=== PATIENT | female | born 1975 | race African-American/Black ===

== ENCOUNTER 2019-03-26 18:28 | Emergency (ER) | payer BC, OTHER ==
[2019-03-26 18:33] VITALS: BP 143/84; PULSE 115; TEMP 98.3; BMI 35.0
--- NOTE | 2019-03-26 18:42 | PDOC ---
*Physical Exam - Vital Signs Last Vital Signs Temp Pulse Resp BP Pulse Ox 98.3 F 115 H 17 143/84 98 03/26/19 18:30 03/26/19 18:30 03/26/19 18:30 03/26/19 18:30 03/26/19 18:30 - Physical Exam Comments: 03/26/19 18:42 The patient was examined by ORLANDO Marie [] under my direct supervision. I personally evaluated the patient. I concur with the above findings and the plan of care.
--- NOTE | 2019-03-26 19:01 | PDOC ---
History of Present Illness - General Chief Complaint: Vaginal Bleeding Stated Complaint: 7 WEEKS /VAG/BLEEDING Time Seen by Provider: 03/26/19 18:31 - History of Present Illness Initial Comments: 03/26/19 18:55 CHIEF COMPLAINT: vaginal bleeding HISTORY OF PRESENT ILLNESS: 43 yo F with hx of antiphospholipid syndrome and incompetent cervix presents to ED with vaginal bleeding since this evening around 5 pm. Patient describes the bleeding as light bleeding and states she has not gone through a full pad since the onset of bleeding. Patient denies any lightheadedness, dizziness, shortness of breath, or palpitations. Patient notes that she is on prednisone for antiphospholipid syndrome has a high HR at baseline. LMP 02/07. Patient notes that this is an IVF and the implantation was done February 21. Patient denies any cramping or abdominal pain. OB: Dr. Melissa. project portfolio analyst: Dr. Richie Quiros No recent travel or sick contacts. PAST MEDICAL HISTORY: antiphospholipid syndrome, incompetent cervix FAMILY HISTORY: Denies SOCIAL HISTORY: Denies tobacco, alcohol, illicit drug use. SURGICAL HISTORY: abdominal cerclage, R ankle ligament reconstruction ALLERGIES: meperidine REVIEW OF SYSTEMS General/Constitutional: Denies fever or chills. Denies weakness, weight change. HEENT: Denies change in vision. Denies ear pain or discharge. Denies sore throat. Cardiovascular: Denies chest pain or shortness of breath. Respiratory: Denies cough, wheezing, or hemoptysis. Gastrointestinal: Denies nausea, vomiting, diarrhea or constipation. Denies rectal bleeding. Genitourinary: Vaginal bleeding x 2 hours. Denies dysuria, frequency, or change in urination. Musculoskeletal: Denies joint or muscle swelling or pain. Denies neck or back pain. Skin and breasts: Denies rash or easy bruising. Neurologic: Denies headache, vertigo, loss of consciousness, or loss of sensation. Psychiatric: Denies depression or anxiety. PHYSICAL EXAM General Appearance: Well-appearing, appropriately dressed. No apparent distress. HEENT: EOMI, PERRLA, normal ENT inspection, normal voice, TMs normal, pharynx normal. No conjunctival pallor. No photophobia, scleral icterus. Neck: Supple. Trachea midline. No tenderness, rigidity, carotid bruit, stridor , lymphadenopathy, or thyromegaly. Respiratory/Chest: Lungs CTAB. No shortness of breath, chest tenderness, respiratory distress, accessory muscle use. No crackles, rales, rhonchi, stridor , wheezing, dullness Cardiovascular: RRR. S1, S2. No JVD, murmur, bradycardia, tachycardia. Vascular Pulses: Dorsalis-Pedis (R): 2+, Dorsalis-Pedis (L): 2+ Gastrointestinal/Abdominal: Normal bowel sounds. Abdomen soft, non-distended. No tenderness or rebound tenderness. No organomegaly, pulsatile mass, guarding , hernia, hepatomegaly, splenomegaly. Pelvic: External genitalia normal without lesions. Bloody discharge to cervical os and vaginal vault. Uterus is nontender and normal in size. Adnexa are nontender and without masses. Lymphatic: No adenopathy, tenderness. Musculoskeletal/Extremities: Normal inspection. FROM of all extremities, normal capillary refill. Pelvis Stable. No CVA tenderness. No tenderness to extremities, pedal edema, swelling, erythema or deformity. Integumentary: Appropriate color, dry, warm. No cyanosis, erythema, jaundice or rash Neurologic: aerial installer II-XII intact. Fully oriented, alert. Appropriate mood/affect. Motor strength 5/5. No appreciable EOM palsy, facial droop or sensory deficit. 03/26/19 19:57 Past History - Past Medical History Allergies/Adverse Reactions: Allergies Allergy/AdvReac Type Severity Reaction Status Date / Time meperidine HCl [From Demerol] Allergy Difficulty Verified 03/26/19 18:33 Breathing Home Medications: Ambulatory Orders Aspirin [ASA -] 81 mg PO DAILY 04/22/16 Estrogens,Esterified [Menest] 2 mg PO BID 04/22/16 Hydrocodone/Ibuprofen [Hydrocodone-Ibuprofen 7.5-200] 1 each PO Q6H #15 tablet MDD 4 04/22/16 Ibuprofen [Motrin -] 800 mg PO Q6H #30 tablet 04/22/16 Non-Formulary 0 mg PO ASDIR 04/22/16 Non-Formulary 0 mg PO ASDIR 04/22/16 Anemia: No Asthma: Yes Cancer: No Cardiac Disorders: No CVA: No COPD: No CHF: No Dementia: No Diabetes: No GI Disorders: No Disorders: No HTN: No Hypercholesterolemia: No Liver Disease: No Seizures: No Thyroid Disease: No Other medical history: antiphospholipids syndrome on lovenox - Surgical History Abdominal Surgery: No Appendectomy: No Cardiac Surgery: No Cholecystectomy: Yes Lung Surgery: No Neurologic Surgery: No Orthopedic Surgery: Yes (R ANKLE LIGAMENT RECONSTUCTION TIMES TWO) - Reproductive History Cervical CA: No Dysfunctional Uterine Bleeding: No Ectopic : No Endometrial CA: No Polycystic Ovaries: No Therapeutic (s) & number: No - Immunization History Immunization Up to Date: Yes - Psycho Social/Smoking Cessation Hx Smoking Status: No Smoking History: Never smoked Have you smoked in the past 12 months: No Number of Cigarettes Smoked Daily: 0 Cigars Per Day: 0 Information on smoking cessation initiated: No Hx Alcohol Use: No Drug/Substance Use Hx: No Substance Use Type: None Hx Substance Use Treatment: No *Physical Exam - Vital Signs Last Vital Signs Temp Pulse Resp BP Pulse Ox 98.3 F 115 H 17 143/84 98 03/26/19 18:30 03/26/19 18:30 03/26/19 18:30 03/26/19 18:30 03/26/19 18:30 ED Treatment Course - LABORATORY CBC & Chemistry Diagram: 03/26/19 18:47 03/26/19 18:47 Medical Decision Making - Medical Decision Making 03/26/19 21:47 43 yo F with hx of antiphospholipid syndrome and incompetent cervix presents to ED with vaginal bleeding since this evening around 5 pm. -labs -T&S -TVUS beta 61610 blood type O positive, no indication for rhogham. US shows IUP with EGA of 6 weeks without embryonic pole - early vs blighted ovum. Advised patient to f/u in 48 hours for repeat beta testing. Advised patient of signs and symptoms for return to ED. Patient verbalized understanding and agrees to plan. Discharge - Discharge Information Problems reviewed: Yes Clinical Impression/Diagnosis: Threatened miscarriage in early Condition: Stable Disposition: HOME - Admission No - Follow up/Referral Referrals: Cherelle Kaminski MD [Primary Care Provider] - Lisa Melissa MD [Staff Physician] - - Patient Discharge Instructions Patient Printed Discharge Instructions: DI for Threatened - Post Discharge Activity Work/Back to School Note: Back to Work
[2019-03-26 19:03] LABS: BASO % 0.5 % (0-2.0); HEMATOCRIT 38.5 % (32.4-45.2); HEMOGLOBIN 12.7 GM/dL (10.7-15.3); LYMPH % 11.9 % (8-40); MCH 28.3 pg (25.7-33.7); MEAN CELL VOLUME 85.6 fl (80-96); MEAN PLT VOLUME 6.7 fl (7.5-11.1); MONO % 3.3 % (3.8-10.2); NEUT % 84.3 % (42.8-82.8); PLATELET COUNT 338 K/MM3 (134-434); RDW 20.9 % (11.6-15.6); WHITE BLOOD COUNT 17.3 K/mm3 (4.0-10.0)
[2019-03-26 19:49] LABS: ALBUMIN 3.3 g/dl (3.4-5.0); BILIRUBIN,TOTAL 0.3 mg/dL (0.2-1); BLOOD UREA NITROGEN 14.4 mg/dL (7-18); CALCIUM 8.8 mg/dL (8.5-10.1); POTASSIUM 4.4 mmol/L (3.5-5.1); TOT PROT 6.9 g/dl (6.4-8.2)
[2019-03-26 21:05] LABS: ANISOCYTOSIS 2+; MACROCYTOSIS 1+; PLATELET ESTIMATE ADEQUATE
== END 2019-03-26 22:24 | disposition home or self-care (01) ==
LOC: JER 18:28
DX: O26.891 Other specified pregnancy related conditions, first trimester (principal); Z3A.01 Less than 8 weeks gestation of pregnancy; O20.0 Threatened abortion
CPT/HCPCS: 36415; 76801-TC; 80053; 84702; 85025; 86850; 86900; 86901; 87086; 99283-25

== ENCOUNTER 2020-05-26 19:59 | Inpatient (IN) | payer BC, OTHER ==
[2020-05-26 20:14] VITALS: BMI 34.0
[2020-05-26] MEDS ORDERED: ACETAMINOPHEN 1000 MG/100 ML VIAL (NON FORMULARY) IVPB ONE (20:22)
[2020-05-26] MEDS ORDERED: SODIUM CHLORIDE 1,000 ML IV STA (20:22)
[2020-05-26] MEDS ORDERED: DEXAMETHASONE SOD PHOSPHATE 10 MG/1 ML VIAL IVPUSH ONE ×2 (20:25→20:34)
[2020-05-26] MEDS ORDERED: DEXAMETHASONE SOD PHOSPHATE 10 MG/1 ML VIAL ONE (21:12)
[2020-05-26] MEDS ORDERED: ACETAMINOPHEN INJECTION 100 ML IVPB ONE (21:12)
[2020-05-26 21:27] LABS: BASO % 0.3 % (0-2.0); EOS % 0.5 % (0-4.5); HEMATOCRIT 44.5 % (32.4-45.2); HEMOGLOBIN 14.9 GM/dL (10.7-15.3); LYMPH % 42.9 % (8-40); MCH 29.4 pg (25.7-33.7); MCHC 33.5 g/dl (32.0-36.0); MEAN CELL VOLUME 87.6 fl (80-96); MEAN PLT VOLUME 7.3 fl (7.5-11.1); MONO % 10.5 % (3.8-10.2); NEUT % 45.8 % (42.8-82.8); PLATELET COUNT 419 K/MM3 (134-434); RBC 5.08 M/mm3 (3.60-5.2); RDW 14.8 % (11.6-15.6); WHITE BLOOD COUNT 7.9 K/mm3 (4.0-10.0)
[2020-05-26 21:28] LABS: VENOUS BASE EXCESS 1.9 mmol/L (-2-2); VENOUS O2 SATURATION 68.4 % (70-80); VENOUS PCO2 30.4 mmHg (38-52); VENOUS PH 7.51 (7.310-7.410)
[2020-05-26 21:44] LABS: INR 1.26 (0.83-1.09); PROTHROMBIN TIME (PATIENT) 15.1 SEC (9.7-13.0)
[2020-05-26 21:47] LABS: ACTIVATED PTT 28.9 SECONDS (25.2-36.5)
[2020-05-26 21:54] LABS: CHLORIDE 103 mmol/L (98-107); POTASSIUM 3.4 mmol/L (3.5-5.1); SODIUM 139 mmol/L (136-145)
[2020-05-26 21:57] LABS: ALBUMIN 3.6 g/dl (3.4-5.0); ANION GAP 12 MMOL/L (8-16); BLOOD UREA NITROGEN 5.6 mg/dL (7-18); CALCIUM 8.8 mg/dL (8.5-10.1); CO2 24 mmol/L (21-32); GLUCOSE,RANDOM 141 mg/dL (74-106)
[2020-05-26 22:01] LABS: BILIRUBIN,DIRECT 0.2 mg/dL (0.0-0.2); SGOT/AST 24 U/L (15-37); SGPT/ALT 26 U/L (13-61)
[2020-05-26 22:02] LABS: BILIRUBIN,TOTAL 0.6 mg/dL (0.2-1); LDH 318 U/L (84-246)
[2020-05-26 22:03] LABS: TOT PROT 7.6 g/dl (6.4-8.2)
[2020-05-26 22:04] LABS: ALK PHOS 97 U/L (45-117)
[2020-05-26] MEDS ORDERED: LACTATED RINGERS SOLUTION 1000 ML INFUS.BAG IV ONE (23:07)
[2020-05-26] MEDS ORDERED: ENOXAPARIN NA (PORCINE) 80 MG/0.8 ML DISP.SYRIN SQ ONE ×2 (23:07→23:46)
[2020-05-26] MEDS ORDERED: ALBUTEROL SO4 2.5/IPRATROPIUM 0.5 INH SOL 3 ML VIAL.NEB. NEB ONE (23:47)
[2020-05-26] MEDS: ALBUTEROL SO4 2.5/IPRATROPIUM 0.5 INH SOL 3 ML VIAL.NEB. NEB SCH (23:56)
[2020-05-27] MEDS: ALBUTEROL SO4 2.5/IPRATROPIUM 0.5 INH SOL 3 ML VIAL.NEB. NEB SCH ×3 (00:11→00:48)
[2020-05-27] MEDS ORDERED: ASCORBIC ACID 500 MG TABLET (FP) ONE ×2 (00:27→10:56)
[2020-05-27] MEDS: ASCORBIC ACID 500 MG TABLET (FP) PO SCH ×3 (00:33→21:50)
[2020-05-27] MEDS ORDERED: AZITHROMYCIN IVPB 500 MG/250 ML BAG IVPB ONE ×2 (01:17→02:27)
[2020-05-27] MEDS ORDERED: CEFTRIAXONE 1 GM in DEXTROSE 5%-WATER - 50 ML IVPB ONE (01:34)
[2020-05-27] MEDS ORDERED: CEFTRIAXONE 1 GM/50 ML BAG ONE (02:27)
[2020-05-27] MEDS: SODIUM CHLORIDE 1,000 ML IV SCH (03:14)
[2020-05-27] MEDS ORDERED: ENOXAPARIN NA (PORCINE) 60 MG/0.6 ML DISP.SYRIN SQ SCH (10:00)
[2020-05-27] MEDS ORDERED: DEXAMETHASONE SOD PHOSPHATE 10 MG/1 ML VIAL ONE (10:56)
[2020-05-27] MEDS ORDERED: ZINC SULFATE 220 MG CAPSULE (FP) ONE (10:56)
[2020-05-27] MEDS ORDERED: ENOXAPARIN NA (PORCINE) 100 MG/1 ML DISP.SYRIN SQ ONE (10:57)
[2020-05-27] MEDS ORDERED: CHOLECALCIFEROL (VIT D3) 1,000 UNIT (25 MCG) TABLET ONE (10:57)
[2020-05-27] MEDS: CHOLECALCIFEROL (VIT D3) 1,000 UNIT (25 MCG) TABLET PO SCH (11:00)
[2020-05-27] MEDS: DEXAMETHASONE SOD PHOSPHATE 10 MG/1 ML VIAL IVPUSH SCH (11:00)
[2020-05-27] MEDS: ZINC SULFATE 220 MG CAPSULE (FP) PO SCH (11:00)
[2020-05-27 11:11] LABS: URINE APPEARANCE CLEAR; URINE BILIRUBIN NEGATIVE (NEGATIVE); URINE COLOR YELLOW; URINE GLUCOSE (UA) 3+ (NEGATIVE); URINE KETONE 2+ (NEGATIVE); URINE LEUK ESTERASE NEGATIVE (NEGATIVE); URINE NITRITE NEGATIVE (NEGATIVE); URINE PROTEIN NEGATIVE (NEGATIVE); URINE UROBILINOGEN 0.2 mg/dL (0.2-1.0)
[2020-05-27] MEDS: D5-1/2NS+20 MEQ KCL - 20 MEQ/1,000 ML INFUS.BAG IV SCH (14:44)
[2020-05-27] MEDS: FAMOTIDINE 20 MG TABLET PO SCH (21:50)
[2020-05-28] MEDS: D5-1/2NS+20 MEQ KCL - 20 MEQ/1,000 ML INFUS.BAG IV SCH ×3 (02:00→22:37)
[2020-05-28 09:00] LABS: BASO % 0.2 % (0-2.0); HEMATOCRIT 36.5 % (32.4-45.2); HEMOGLOBIN 12.4 GM/dL (10.7-15.3); MCH 29.4 pg (25.7-33.7); MCHC 33.9 g/dl (32.0-36.0); MEAN CELL VOLUME 86.8 fl (80-96); MEAN PLT VOLUME 7.3 fl (7.5-11.1); MONO % 8.5 % (3.8-10.2); NEUT % 66.3 % (42.8-82.8); PLATELET COUNT 418 K/MM3 (134-434); RBC 4.21 M/mm3 (3.60-5.2); WHITE BLOOD COUNT 8.4 K/mm3 (4.0-10.0)
[2020-05-28 09:17] LABS: POTASSIUM 3.7 mmol/L (3.5-5.1)
[2020-05-28 09:36] LABS: BLOOD UREA NITROGEN 5.4 mg/dL (7-18); CALCIUM 8.6 mg/dL (8.5-10.1)
[2020-05-28 09:38] LABS: MAGNESIUM 2.3 mg/dL (1.8-2.4)
[2020-05-28 09:41] LABS: CREATININE 0.9 mg/dL (0.55-1.3)
[2020-05-28] MEDS: ZINC SULFATE 220 MG CAPSULE (FP) PO SCH (10:32)
[2020-05-28] MEDS: ASCORBIC ACID 500 MG TABLET (FP) PO SCH ×2 (10:32→21:28)
[2020-05-28] MEDS: CHOLECALCIFEROL (VIT D3) 1,000 UNIT (25 MCG) TABLET PO SCH (10:32)
[2020-05-28] MEDS: FAMOTIDINE 20 MG TABLET PO SCH ×2 (10:32→21:28)
[2020-05-28] MEDS: ENOXAPARIN NA (PORCINE) 40 MG/0.4 ML DISP.SYRIN SQ SCH (10:33)
[2020-05-28] MEDS: SODIUM CHLORIDE 1,000 ML IV SCH (10:33)
[2020-05-28] MEDS: DEXAMETHASONE SOD PHOSPHATE 10 MG/1 ML VIAL IVPUSH SCH (10:33)
[2020-05-28] MEDS ORDERED: PT OWN MED DRAWER 7, Y5N ONE (12:38)
[2020-05-28] MEDS: BUDESONIDE/FORMETEROL FUMARATE 160/4.5 mcg INHALER IH SCH ×2 (12:42→21:28)
[2020-05-28] MEDS ORDERED: ALPRAZolam 0.25 MG TABLET PO PRN (13:30)
[2020-05-29] MEDS: SODIUM CHLORIDE 1,000 ML IV SCH (03:39)
[2020-05-29] MEDS ORDERED: PT OWN MED DRAWER 7, Y5N ONE ×2 (09:15→20:19)
[2020-05-29] MEDS: DEXAMETHASONE SOD PHOSPHATE 10 MG/1 ML VIAL IVPUSH SCH (09:29)
[2020-05-29] MEDS: ENOXAPARIN NA (PORCINE) 40 MG/0.4 ML DISP.SYRIN SQ SCH (09:29)
[2020-05-29] MEDS: FAMOTIDINE 20 MG TABLET PO SCH ×2 (09:30→21:16)
[2020-05-29] MEDS: ZINC SULFATE 220 MG CAPSULE (FP) PO SCH (09:30)
[2020-05-29] MEDS: CHOLECALCIFEROL (VIT D3) 1,000 UNIT (25 MCG) TABLET PO SCH (09:30)
[2020-05-29] MEDS: ASCORBIC ACID 500 MG TABLET (FP) PO SCH ×2 (09:30→21:16)
[2020-05-29] MEDS: BUDESONIDE/FORMETEROL FUMARATE 160/4.5 mcg INHALER IH SCH ×2 (09:40→21:38)
[2020-05-29 09:47] LABS: BASO % 0.3 % (0-2.0); HEMOGLOBIN 11.8 GM/dL (10.7-15.3); LYMPH % 16.5 % (8-40); MCH 29.2 pg (25.7-33.7); MCHC 32.9 g/dl (32.0-36.0); MEAN CELL VOLUME 88.6 fl (80-96); MEAN PLT VOLUME 7.5 fl (7.5-11.1); MONO % 6.6 % (3.8-10.2); NEUT % 76.6 % (42.8-82.8); PLATELET COUNT 382 K/MM3 (134-434); RBC 4.06 M/mm3 (3.60-5.2); RDW 14.9 % (11.6-15.6)
[2020-05-29 09:55] LABS: POTASSIUM 5.2 mmol/L (3.5-5.1)
[2020-05-29 10:07] LABS: ALBUMIN 2.7 g/dl (3.4-5.0); CALCIUM 8.4 mg/dL (8.5-10.1)
[2020-05-29 10:08] LABS: BLOOD UREA NITROGEN 7.5 mg/dL (7-18)
[2020-05-29 10:11] LABS: CREATININE 0.8 mg/dL (0.55-1.3)
[2020-05-29 10:12] LABS: BILIRUBIN,TOTAL 0.6 mg/dL (0.2-1); TOT PROT 6.1 g/dl (6.4-8.2)
[2020-05-29] MEDS ORDERED: D5-1/2NS+20 MEQ KCL - 20 MEQ/1,000 ML INFUS.BAG IV SCH (10:49)
[2020-05-29] MEDS: SODIUM CHLORIDE 0.45% 1,000 ML IV SCH (11:35)
[2020-05-29] MEDS ORDERED: ALBUTEROL SO4 HFA INHALER IH PRN (12:22)
[2020-05-29] MEDS ORDERED: guaiFENesin 200 MG/10 ML 10 ML UNIT-DOSE CUPS PO PRN (12:33)
[2020-05-30] MEDS ORDERED: PT OWN MED DRAWER 7, Y5N ONE ×5 (04:00→20:55)
[2020-05-30] MEDS: CHOLECALCIFEROL (VIT D3) 1,000 UNIT (25 MCG) TABLET PO SCH (10:06)
[2020-05-30] MEDS: ZINC SULFATE 220 MG CAPSULE (FP) PO SCH (10:06)
[2020-05-30] MEDS: DEXAMETHASONE SOD PHOSPHATE 10 MG/1 ML VIAL IVPUSH SCH (10:06)
[2020-05-30] MEDS: FAMOTIDINE 20 MG TABLET PO SCH ×2 (10:06→21:50)
[2020-05-30] MEDS: ASCORBIC ACID 500 MG TABLET (FP) PO SCH ×2 (10:06→21:50)
[2020-05-30] MEDS: BUDESONIDE/FORMETEROL FUMARATE 160/4.5 mcg INHALER IH SCH ×2 (10:09→21:56)
[2020-05-30 10:27] LABS: HEMOGLOBIN 11.9 GM/dL (10.7-15.3); MCH 29.6 pg (25.7-33.7); MCHC 33.8 g/dl (32.0-36.0); MEAN CELL VOLUME 87.4 fl (80-96); MEAN PLT VOLUME 7.2 fl (7.5-11.1); PLATELET COUNT 405 K/MM3 (134-434); RBC 4.01 M/mm3 (3.60-5.2); RDW 15.2 % (11.6-15.6); WHITE BLOOD COUNT 9.9 K/mm3 (4.0-10.0)
[2020-05-30 10:49] LABS: POTASSIUM 3.6 mmol/L (3.5-5.1)
[2020-05-30] MEDS: ENOXAPARIN NA (PORCINE) 40 MG/0.4 ML DISP.SYRIN SQ SCH (10:55)
[2020-05-30 11:02] LABS: ALBUMIN 2.6 g/dl (3.4-5.0); BLOOD UREA NITROGEN 8.2 mg/dL (7-18); CALCIUM 8.5 mg/dL (8.5-10.1)
[2020-05-30 11:05] LABS: BILIRUBIN,TOTAL 0.3 mg/dL (0.2-1); CREATININE 0.8 mg/dL (0.55-1.3)
[2020-05-30 11:06] LABS: TOT PROT 5.6 g/dl (6.4-8.2)
[2020-05-30] MEDS: SODIUM CHLORIDE 0.45% 1,000 ML IV SCH (11:27)
[2020-05-31] MEDS: ENOXAPARIN NA (PORCINE) 40 MG/0.4 ML DISP.SYRIN SQ SCH (09:58)
[2020-05-31] MEDS: DEXAMETHASONE SOD PHOSPHATE 10 MG/1 ML VIAL IVPUSH SCH (09:58)
[2020-05-31] MEDS: CHOLECALCIFEROL (VIT D3) 1,000 UNIT (25 MCG) TABLET PO SCH (09:58)
[2020-05-31] MEDS: ZINC SULFATE 220 MG CAPSULE (FP) PO SCH (09:58)
[2020-05-31] MEDS: FAMOTIDINE 20 MG TABLET PO SCH (09:59)
[2020-05-31] MEDS: ASCORBIC ACID 500 MG TABLET (FP) PO SCH (09:59)
[2020-05-31] MEDS: BUDESONIDE/FORMETEROL FUMARATE 160/4.5 mcg INHALER IH SCH (09:59)
[2020-05-31 14:05] VITALS: BP 156/89; PULSE 60; TEMP 98.3
== END 2020-05-31 14:54 | disposition home or self-care (01) | DRG 177 ==
LOC: JER 19:59 → JERBED 05-27 00:20 → J8W 05-27 18:34
PROVIDERS: ADMIT Hospitalist; ATTEND Internal Medicine
DX: U07.1 COVID-19 (principal); J12.82 Pneumonia due to coronavirus disease 2019; J96.01 Acute respiratory failure with hypoxia; A41.9 Sepsis, unspecified organism; E87.2 Acidosis; J45.909 Unspecified asthma, uncomplicated; R00.0 Tachycardia, unspecified
CPT/HCPCS: 36415; 71045-TC-FY; 71260-TC; 80048; 80053; 81003; 82248; 82550; 82553; 82728; 82803; 82962; 83605; 83615; 83735; 84484; 84703; 85025; 85027; 85379; 85610; 85730; 86140; 86769; 87040; 87086; 87804; 93005; 93010; 94010; 94761; 99285-25; C9803; J0131; J1100; Q9967; U0003

== ENCOUNTER 2020-06-21 15:53 | Emergency (ER) | payer BC, OTHER ==
[2020-06-21 16:35] VITALS: TEMP 98.5; BMI 36.0
[2020-06-21] MEDS ORDERED: ONDANSETRON 4 MG/2 ML VIAL IVPUSH ONE (17:31)
[2020-06-21] MEDS ORDERED: SODIUM CHLORIDE 1,000 ML IV STA (17:31)
[2020-06-21] MEDS ORDERED: ONDANSETRON 4 MG/2 ML VIAL ONE (17:42)
[2020-06-21 19:22] LABS: BASO % 0.8 % (0-2.0); EOS % 6.9 % (0-4.5); HEMATOCRIT 38.9 % (32.4-45.2); HEMOGLOBIN 12.8 GM/dL (10.7-15.3); MCH 29.4 pg (25.7-33.7); MCHC 32.9 g/dl (32.0-36.0); MEAN CELL VOLUME 89.5 fl (80-96); MEAN PLT VOLUME 7.5 fl (7.5-11.1); MONO % 7.6 % (3.8-10.2); NEUT % 47.7 % (42.8-82.8); PLATELET COUNT 515 K/MM3 (134-434); RBC 4.35 M/mm3 (3.60-5.2); RDW 15.4 % (11.6-15.6)
[2020-06-21 19:49] LABS: CHLORIDE 101 mmol/L (98-107); POTASSIUM 3.9 mmol/L (3.5-5.1); SODIUM 136 mmol/L (136-145)
[2020-06-21 19:50] LABS: CALCIUM 9.1 mg/dL (8.5-10.1)
[2020-06-21 19:51] LABS: ALBUMIN 3.6 g/dl (3.4-5.0); ANION GAP 7 MMOL/L (8-16); BLOOD UREA NITROGEN 5.3 mg/dL (7-18); CO2 28 mmol/L (21-32); GLUCOSE,RANDOM 222 mg/dL (74-106)
[2020-06-21 19:54] LABS: CREATININE 0.8 mg/dL (0.55-1.3); SGOT/AST 21 U/L (15-37); SGPT/ALT 20 U/L (13-61)
[2020-06-21 19:56] LABS: BILIRUBIN,TOTAL 0.4 mg/dL (0.2-1); TOT PROT 7.5 g/dl (6.4-8.2)
[2020-06-21 19:57] LABS: ALK PHOS 98 U/L (45-117)
[2020-06-21 21:29] LABS: HCG,QUALITATIVE URINE Negative
[2020-06-21 22:00] LABS: EPI CELLS 18 /uL (0-25.1); HYALINE CASTS 2 /uL (0-3.1); PH,URINE 5.5 (5.0-8.0); URINE APPEARANCE CLEAR; URINE BACTERIA 288 /uL (0-1359); URINE BILIRUBIN NEGATIVE (NEGATIVE); URINE COLOR YELLOW; URINE GLUCOSE (UA) 3+ (NEGATIVE); URINE KETONE TRACE (NEGATIVE); URINE LEUK ESTERASE NEGATIVE (NEGATIVE); URINE NITRITE NEGATIVE (NEGATIVE); URINE PROTEIN TRACE (NEGATIVE); URINE RBC 8 /uL (0-23.9); URINE UROBILINOGEN 0.2 mg/dL (0.2-1.0); URINE WBC 50 /uL (0-25.8)
[2020-06-21 23:27] VITALS: BP 128/75; PULSE 95
== END 2020-06-21 23:27 | disposition home or self-care (01) ==
LOC: JER 15:53
PROC: 3E033NZ Introduction of Analgesics, Hypnotics, Sedatives into Peripheral Vein, Percutaneous Approach (ICD-10-PCS; principal; 2020-06-21)
PROC: 3E0337Z Introduction of Electrolytic and Water Balance Substance into Peripheral Vein, Percutaneous Approach (ICD-10-PCS; 2020-06-21)
DX: J12.82 Pneumonia due to coronavirus disease 2019 (principal); U07.1 COVID-19; R10.33 Periumbilical pain; R11.2 Nausea with vomiting, unspecified; K42.9 Umbilical hernia without obstruction or gangrene
CPT/HCPCS: 36415; 71046-TC-FY; 71275-TC; 74177-TC; 80053; 81003; 84484; 84703; 85025; 85379; 93005; 93010; 99285-25; Q9967

== ENCOUNTER 2020-06-29 04:27 | Day surgery (SDC) | payer BC, OTHER ==
[2020-06-25 12:44] VITALS: BMI 36.0
[2020-06-29] MEDS ORDERED: PROPOFOL 20 ML ONE ×2 (07:37)
[2020-06-29] MEDS ORDERED: SUCCINYLCHOLINE CHLORIDE 200 MG/10 ML SYRINGE ONE (07:38)
[2020-06-29] MEDS ORDERED: MIDAZOLAM HCL 2 MG/2 ML SINGLE DOSE VIAL ONE (07:38)
[2020-06-29] MEDS ORDERED: ROCURONIUM BROMIDE 50 MG/5 ML SYRINGE ONE (07:38)
[2020-06-29] MEDS ORDERED: LIDOCAINE HCL 1%, 10 MG/ML (20ML VIAL) ONE (08:26)
[2020-06-29] MEDS ORDERED: BUPIVACAINE HCL 0.5% 250 MG/50 ML VIAL IJ ONE ×2 (08:35)
[2020-06-29] MEDS ORDERED: LIDOCAINE HCL 1%, 10 MG/ML (20ML VIAL) INF ONE ×2 (08:35)
[2020-06-29] MEDS ORDERED: PHENYLEPHRINE HCL 10 MG/1 ML SINGLE DOSE VIAL ONE (09:26)
[2020-06-29] MEDS ORDERED: NEOSTIGMINE METHYLSULFATE 0.5 MG/ML - 10 ML MDV ONE (09:27)
[2020-06-29] MEDS ORDERED: ONDANSETRON 4 MG/2 ML VIAL IVPUSH PRN (10:28)
[2020-06-29] MEDS ORDERED: ACETAMINOPHEN 1000 MG/100 ML VIAL (NON FORMULARY) IVPB PRN (10:29)
[2020-06-29] MEDS ORDERED: LACTATED RINGERS SOLUTION 1,000 ML IV SCH (10:30)
[2020-06-29] MEDS ORDERED: oxyCODONE HCL 5 MG TABLET PO PRN (10:32)
[2020-06-29] MEDS ORDERED: ACETAMINOPHEN INJECTION 100 ML IVPB ONE (11:18)
[2020-06-29] MEDS ORDERED: oxyCODONE HCL 5 MG TABLET ONE (13:39)
[2020-06-29 15:02] VITALS: BP 102/67; PULSE 110; TEMP 97.9
== END 2020-06-29 16:00 | disposition home or self-care (01) ==
LOC: JASU-SURG 04:27
PROVIDERS: ATTEND Surgery
PROC: 0WUF0JZ Supplement Abdominal Wall with Synthetic Substitute, Open Approach (ICD-10-PCS; principal; 2020-06-29 08:00)
DX: K43.2 Incisional hernia without obstruction or gangrene (principal); E11.9 Type 2 diabetes mellitus without complications
CPT/HCPCS: 81025; 94760; J0131

== ENCOUNTER 2021-01-04 02:12 | Emergency (ER) | payer BC ==
[2021-01-04 03:14] VITALS: BP 116/81; PULSE 93; TEMP 98.4; BMI 31.6
[2021-01-04] MEDS ORDERED: LIDOCAINE 5% TOPICAL PATCH TP ONE ×2 (03:30→07:40)
[2021-01-04] MEDS ORDERED: KETOROLAC TROMETHAMINE 30 MG/1 ML VIAL IM ONE (04:15)
[2021-01-04] MEDS ORDERED: KETOROLAC TROMETHAMINE 30 MG/1 ML VIAL ONE (05:07)
[2021-01-04] MEDS ORDERED: LIDOCAINE 5% TOPICAL PATCH ONE (07:55)
[2021-01-04] MEDS ORDERED: LIDOCAINE PATCH REMOVAL MC ONE (22:00)
[2021-01-04] MEDS ORDERED: LIDOCAINE PATCH REMOVAL MC SCH (22:00)
== END 2021-01-04 09:18 | disposition home or self-care (01) ==
LOC: JER 02:12
PROC: 3E023GC Introduction of Other Therapeutic Substance into Muscle, Percutaneous Approach (ICD-10-PCS; principal; 2021-01-04)
DX: M54.2 Cervicalgia (principal); M54.5 Low back pain
CPT/HCPCS: 70450-TC; 72125-TC; 72128-TC; 72131-TC; 84703; 99284-25

== ENCOUNTER 2022-05-01 06:31 | Emergency (ER) | payer BC, OTHER ==
[2022-05-01 07:03] VITALS: BP 134/88; PULSE 115; RESP 18; TEMP 98.2; BMI 32.8
[2022-05-01] MEDS ORDERED: ACETAMINOPHEN 1000 MG/100 ML BAG IVPB ONE (07:37)
[2022-05-01] MEDS ORDERED: METOCLOPRAMIDE HCL INJECTION 10 MG/2 ML VIAL IVPUSH ONE (07:37)
[2022-05-01] MEDS ORDERED: ACETAMINOPHEN INJECTION 100 ML IVPB ONE (08:02)
[2022-05-01] MEDS ORDERED: METOCLOPRAMIDE HCL INJECTION 10 MG/2 ML VIAL ONE (08:02)
[2022-05-01 09:57] LABS: BASO % 0.6 % (0-2.0); EOS % 0.1 % (0-4.5); HEMATOCRIT 38.5 % (32.4-45.2); HEMOGLOBIN 12.5 GM/dL (10.7-15.3); LYMPH % 17.3 % (8-40); MCH 27.9 pg (25.7-33.7); MCHC 32.4 g/dl (32.0-36.0); MEAN PLT VOLUME 6.8 fl (7.5-11.1); MONO % 1.5 % (3.8-10.2); NEUT % 80.5 % (42.8-82.8); PLATELET COUNT 387 10^3/uL (134-434); RBC 4.48 M/mm3 (3.60-5.2); RDW 16.5 % (11.6-15.6); WHITE BLOOD COUNT 7.4 K/mm3 (4.0-10.0)
[2022-05-01 10:09] LABS: ALBUMIN 3.6 g/dl (3.4-5.0); CALCIUM 8.9 mg/dL (8.5-10.1)
[2022-05-01 10:10] LABS: BLOOD UREA NITROGEN 8.6 mg/dL (7-18)
[2022-05-01 10:13] LABS: CREATININE 0.7 mg/dL (0.55-1.3)
[2022-05-01 10:14] LABS: BILIRUBIN,TOTAL 0.5 mg/dL (0.2-1); TOT PROT 7.1 g/dl (6.4-8.2)
[2022-05-01] MEDS ORDERED: acetaZOLAMIDE 250 MG TABLET PO ONE (11:22)
== END 2022-05-01 12:29 | disposition home or self-care (01) ==
LOC: JER 06:31
PROC: 3E033GC Introduction of Other Therapeutic Substance into Peripheral Vein, Percutaneous Approach (ICD-10-PCS; principal; 2022-05-01)
DX: R51.9 Headache, unspecified (principal); W19.XXXA Unspecified fall, initial encounter
CPT/HCPCS: 36415; 70450-TC; 72070-TC-FY; 72100-TC-FY; 72125-TC; 80053; 85025; 99285-25